=== PATIENT | female | born 2000 | race Caucasian/White ===

== ENCOUNTER 2020-08-21 16:00 | Emergency (ER) | payer OTHER, SELFPAY ==
[2020-08-21 16:12] VITALS: BP 132/68; PULSE 93; RESP 16; TEMP 37.1; O2SAT 100
--- NOTE | 2020-08-21 17:34 | ED.URI ---
HPI - URI/Sore Throat General Chief Complaint: Upper Respiratory Infection Stated Complaint: strep test Time Seen by Provider: 08/21/20 17:27 Source: patient and RN notes reviewed Mode of arrival: ambulatory Limitations: no limitations History of Present Illness HPI Narrative: Patient presents today requesting a strep test. Patient started with a strep throat around [place] and started taking some leftover amoxicillin on 08/16 until 08/19/2024 this sore throat and presumed strep throat. States her sore throat improved, but she still is experiencing scratchiness. Denies cough, runny nose, congestion, fever. She gets tested for COVID-19 twice weekly at her job and has been negative. She has tried no [id number] treatment for her symptoms prior to arrival. Her employer is requiring her to have a negative strep test for her to come back to work. MD elicited complaint: sore throat Related Data Home Medications Medication Instructions Recorded Confirmed No Home Medications 08/21/20 08/21/20 Allergies Allergy/AdvReac Type Severity Reaction Status Date / Time No Known Allergies Allergy Verified 08/21/20 17:20 Review of Systems Review of Systems: Narrative: CONSTITUTIONAL: Denies body aches, fever, chills, or sweats. EYES: Denies visual changes, redness, or discharge. ENT: Denies rhinorrhea, congestion, or otalgia. + Sore throat CARDIOVASCULAR: Denies chest pain, palpitations, or edema. RESPIRATORY: Denies cough or dyspnea. GASTROINTESTINAL: Denies abdominal pain, nausea, vomiting, or diarrhea. GENITOURINARY: Denies dysuria or hematuria. SKIN: Denies rash, itching, or wounds. MUSCULOSKELETAL: Denies back pain, joint pain, or myalgia. NEUROLOGIC: Denies headache, numbness, tingling, or weakness. PSYCH: Denies depression or anxiety. PMFSH Comments At time of signature, I have reviewed and agree with nursing past medical, surgical, social and family history unless otherwise noted. Please see nursing chart for further information. There is no relevant family history pertinent to the presenting complaint Exam Narrative: Exam Narrative: GENERAL: Well-appearing, well-nourished, and in no acute distress. HEAD: Normocephalic, atraumatic. EYES: EOMI. No redness or drainage. Conjunctivae normal. ENT: Mucous membranes pink and moist. Nares clear. No rhinorrhea. TMs normal bilaterally. Throat mildly erythematous without edema or exudate. Small tonsil stone on the left tonsil. Uvula midline. NECK: Normal AROM. Supple. Left posterior chain lymphadenopathy. CHEST: No respiratory distress. Clear to auscultation. HEART: Regular rate and rhythm. No murmur appreciated. Normal peripheral pulses. EXTREMITIES: Normal range of motion. No edema. SKIN: Warm, dry, no rash. Capillary refill normal. Normal skin turgor. NEURO: No focal deficits. Alert and oriented x3. Gait steady. PSYCH: Normal affect. No signs of depression or anxiety. Course Vital Signs Vital signs: Vital Signs Temperature 98.8 F 08/21/20 16:12 Pulse Rate 93 08/21/20 16:12 Respiratory Rate 16 08/21/20 16:12 Blood Pressure 132/68 08/21/20 16:12 Pulse Oximetry 100 08/21/20 16:12 Temperature 98.8 F 08/21/20 16:12 Pulse Rate 93 08/21/20 16:12 Respiratory Rate 16 08/21/20 16:12 Blood Pressure 132/68 08/21/20 16:12 Pulse Oximetry 100 08/21/20 16:12 Reviewed. Pt has been instructed to follow up with her PCP regarding her elevated blood pressure today. MDM - URI/Sore Throat Differential Diagnosis Differential diagnosis: Likely upper respiratory infection, viral infection, pharyngitis and other (Strep throat) Lab Data Attestation: I reviewed the patient's lab results. Labs: Strep Screen Presumptive Negative *(Reference Range: Negative)* Critical Care Time Critical Care Time Critical Care Time: No Discharge Plan Discharge Clinical Impression: Pharyngitis
== END 2020-08-21 17:40 | disposition home or self-care (01) ==
PROVIDERS: Emergency Provider Nurse Practitioner
DX: J02.9 Acute pharyngitis, unspecified (principal)
CPT/HCPCS: 87081; 87880; 99213; G0463

== ENCOUNTER 2021-01-24 13:56 | Emergency (ER) | payer OTHER, SELFPAY ==
[2021-01-24 14:00] VITALS: BP 114/69; PULSE 80; RESP 22; TEMP 37.1; O2SAT 99
--- NOTE | 2021-01-24 14:50 | ED.URI ---
HPI - URI/Sore Throat General Chief Complaint: Upper Respiratory Infection Stated Complaint: Chest pain/nausea/cough/headache Time Seen by Provider: 01/24/21 14:38 Source: patient and RN notes reviewed Mode of arrival: ambulatory Limitations: no limitations History of Present Illness HPI Narrative: Patient presents today complaining of a 2-day history of productive cough, wheezing, pain with deep breaths, sneezing, sore throat, and headache. Denies congestion, rhinorrhea, fever, or shortness of breath. Patient does report asthma, but does not have an inhaler currently. She has been taking ibuprofen, but no other medications for symptoms. MD elicited complaint: cough and sore throat Related Data Allergies Allergy/AdvReac Type Severity Reaction Status Date / Time No Known Allergies Allergy Verified 08/21/20 17:20 Review of Systems Review of Systems: Narrative: CONSTITUTIONAL: Denies body aches, fever, chills, or sweats. EYES: Denies visual changes, redness, or discharge. ENT: Denies rhinorrhea, congestion, or otalgia.+ Sore throat CARDIOVASCULAR: Denies chest pain, palpitations, or edema. RESPIRATORY: Denies dyspnea.+ Cough, wheezing GASTROINTESTINAL: Denies abdominal pain, nausea, vomiting, or diarrhea. GENITOURINARY: Denies dysuria or hematuria. SKIN: Denies rash, itching, or wounds. MUSCULOSKELETAL: Denies back pain, joint pain, or myalgia. NEUROLOGIC: Denies numbness, tingling, or weakness.+ Headache PSYCH: Denies depression or anxiety. [facility] Past Medical History Medical History (Updated 01/24/21 @ 15:25 by Elsa Zepeda, [facility], ) Asthma Comments At time of signature, I have reviewed and agree with nursing past medical, surgical, social and family history unless otherwise noted. Please see nursing chart for further information. There is no relevant family history pertinent to the presenting complaint Exam Narrative: Exam Narrative: GENERAL: Well-appearing, well-nourished, and in no acute distress. HEAD: Normocephalic, atraumatic. EYES: EOMI. No redness or drainage. Conjunctivae normal. ENT: Mucous membranes pink and moist. Nares clear. No rhinorrhea. TMs normal bilaterally. Throat normal. Uvula midline. NECK: Normal AROM. Supple. No lymphadenopathy. CHEST: No respiratory distress. Clear to auscultation. Frequent tight cough. HEART: Regular rate and rhythm. No murmur appreciated. Normal peripheral pulses. EXTREMITIES: Normal range of motion. No edema. SKIN: Warm, dry, no rash. Capillary refill normal. Normal skin turgor. NEURO: No focal deficits. Alert and oriented x3. Gait steady. PSYCH: Normal affect. No signs of depression or anxiety. Course Vital Signs Vital signs: Vital Signs Temperature 98.7 F 01/24/21 14:00 Pulse Rate 80 01/24/21 14:00 Respiratory Rate 22 H 01/24/21 14:00 Blood Pressure 114/69 01/24/21 14:00 Pulse Oximetry 99 01/24/21 14:00 Temperature 98.7 F 01/24/21 14:00 Pulse Rate 80 01/24/21 14:00 Respiratory Rate 22 H 01/24/21 14:00 Blood Pressure 114/69 01/24/21 14:00 Pulse Oximetry 99 01/24/21 14:00 Reviewed MDM - URI/Sore Throat Differential Diagnosis Differential diagnosis: Likely upper respiratory infection, sinusitis, viral infection, bronchitis, pharyngitis and other (Seasonal allergies, rhinitis) Critical Care Time Critical Care Time Critical Care Time: No Discharge Plan Discharge Clinical Impression: Bronchitis, Seasonal allergies Patient Disposition: Home, Self-Care Condition: Stable Instructions: Acute Bronchitis (ED), Allergies (ED) Additional Instructions: Your symptoms are likely due to seasonal allergies. Please start Mucinex and a daily antihistamine such as Zyrtec, Claritin, or Ely. Please take the prednisone and use the albuterol inhaler as directed. Follow-up with your PCP in 1 week if symptoms are not improving, or sooner if symptoms worsen. Patient Language: [place] Prescriptions: New
== END 2021-01-24 14:59 | disposition home or self-care (01) ==
PROVIDERS: Emergency Provider Nurse Practitioner
DX: J40 Bronchitis, not specified as acute or chronic (principal); J30.9 Allergic rhinitis, unspecified
CPT/HCPCS: 99213; G0463

== ENCOUNTER 2021-04-06 14:39 | Emergency (ER) | payer OTHER, SELFPAY ==
[2021-04-06 15:01] VITALS: BP 132/63; PULSE 82; RESP 20; TEMP 37.1; O2SAT 98
--- NOTE | 2021-04-06 16:10 | ED.GENADULT ---
HPI - General Adult General Chief complaint: Upper Respiratory Infection Stated complaint: Sore Throat Time Seen by Provider: 04/06/21 16:10 Source: patient and RN notes reviewed Mode of arrival: ambulatory Limitations: no limitations History of Present Illness HPI narrative: 21-year-old female presents with complaints of sore throat, body aches, and congestion for 1 day. Ida reports increasing sore throat and congestion throughout the day. No treatment. Ill exposure. No high fevers, drooling, neck or throat swelling. Pain is bilateral. Hurts to swallow. Exacerbation factors consist of eating and drinking. Rhinorrhea and nasal congestion. No voice change. No nausea, vomiting, or abdominal pain. Tolerating liquids well. Denies chills, dyspnea, difficulty swallowing, jaw pain, dental pain, facial pain, foreign body sensation, and rash. LMP 2 weeks ago. Remains active. The patient reports she was diagnosed with COVID-19 in June 2020. The patient reports she is not waiting for the results of a COVID-19 lab test. The patient reports she does not have weakness, fatigue, or myalgia. The patient reports he does not have a new or worsening cough or shortness of breath. The patient reports he does not have any loss of taste or smell and diarrhea. Denies recent traveling. Denies concerns for COVID-19 or exposures. At this time, the patient is not suspected of having COVID-19. Some parts of this dictation were generated by voice recognition software and may contain typographical and/or grammatical inaccuracies. Related Data Allergies Allergy/AdvReac Type Severity Reaction Status Date / Time No Known Allergies Allergy Verified 04/06/21 15:23 Review of Systems Review of Systems: CONSTITUTIONAL: Denies fever, chills, sweats. EYES: Denies visual changes, redness, discharge. ENT: Denies otalgia. Complains of sore throat, rhinorrhea, congestion. CARDIOVASCULAR: Denies chest pain, palpitations, edema. RESPIRATORY: Denies dyspnea, wheezing, cough. GASTROINTESTINAL: Denies abdominal pain, nausea, vomiting, diarrhea. SKIN: Denies rash or itching. MUSCULOSKELETAL: Denies acute back pain, joint pain, or myalgia. Complaints of body aches. NEUROLOGIC: Denies numbness or focal weakness. PSYCHIATRIC: Denies anxiety or depression. All systems reviewed & are unremarkable except as noted in HPI and below. [facility] Past Medical History Medical History Asthma Obese Smoker Surgical History Surgical History (Updated 04/06/21 @ 16:49 by AKILA Bernard) No significant past surgical history Family History Family History (Updated 04/06/21 @ 16:50 by AKILA Bernard) Father Alive and well Mother Alive and well Social History Social History (Updated 04/06/21 @ 16:50 by AKILA Bernard) Years smoked: 10 Smoking status: Current every day smoker Tobacco type: cigarettes Second hand tobacco smoke exposure: Yes Living arrangements: with family Occupation/Education: occupation Gender identity (if verbalized by the patient): Female Sexual Orientation (if Verbalized by the Patient): Straight or Heterosexual Comments At time of signature, agree with the nurse past medical, surgical, social, and family history. There is no relevant family history pertinent to the presenting complaint. Exam Narrative: GENERAL: This is a well-nourished, well-developed patient, in no apparent distress. Speaks in full sentences without deficits and ambulates with steady gait without dyspnea. HEAD: Normocephalic, atraumatic. EYES: PERRL. Sclera clear/white. Vision is grossly intact. EARS: External ears normal, auditory canals clear and without drainage, TMs normal without perforation. Hearing grossly intact. NOSE: External nose normal with no obvious nasal discharge, nares with moderate redness and enlarged turbinates, clear rhinorrhea. THROAT: Mucous membranes moist, posterior pharynx with moderate eryth
== END 2021-04-06 17:04 | disposition home or self-care (01) ==
PROVIDERS: Emergency Provider Nurse Practitioner Family
DX: J02.9 Acute pharyngitis, unspecified (principal); F17.210 Nicotine dependence, cigarettes, uncomplicated; J45.909 Unspecified asthma, uncomplicated; E66.9 Obesity, unspecified; Z68.32 Body mass index [BMI] 32.0-32.9, adult
CPT/HCPCS: 87880; 99213; G0463

== ENCOUNTER 2022-01-30 09:50 | Emergency (ER) | payer OTHER, SELFPAY ==
[2022-01-30 09:55] VITALS: BP 120/77; PULSE 80; RESP 16; TEMP 36.9; O2SAT 99
--- NOTE | 2022-01-30 09:57 | ED.URI ---
HPI - URI/Sore Throat General Chief Complaint: Upper Respiratory Infection Stated Complaint: sore throat Time Seen by Provider: 01/30/22 09:57 Source: patient and RN notes reviewed History of Present Illness HPI Narrative: Patient is a 21-year-old female who presents the urgent care with complaints of a sore throat that started this morning. Patient states that she does have a history of strep just as of 6 months ago. Patient denies any ill exposures. Denies of taken anything [id number] for her symptoms. Denies fever, nausea or vomiting. No other acute complaints. No acute distress noted. Patient aware of the plan of care. Some parts of this dictation were generated by voice recognition software and may contain typographical and/or grammatical inaccuracies. Related Data Home Medications Medication Instructions Recorded Confirmed No Home Medications 01/30/22 01/30/22 Allergies Allergy/AdvReac Type Severity Reaction Status Date / Time No Known Allergies Allergy Verified 01/30/22 10:04 Review of Systems Review of Systems: CONSTITUTIONAL: Denies fever, chills, or sweats. EYES: Denies visual changes, redness, or discharge. ENT: Denies rhinorrhea, congestion, or otalgia. Reports of sore throat CARDIOVASCULAR: Denies chest pain, palpitations, or edema. RESPIRATORY: Denies cough or dyspnea. GASTROINTESTINAL: Denies abdominal pain, nausea, vomiting, or diarrhea. GENITOURINARY: Denies dysuria or hematuria. SKIN: Denies rash or itching. MUSCULOSKELETAL: Denies back pain, joint pain, or myalgia. NEUROLOGIC: Denies headache, numbness, or weakness. All other systems reviewed are negative, except as documented in HPI. [facility] Past Medical History Medical History Asthma Obese Smoker Surgical History Surgical History (Updated 04/06/21 @ 16:49 by AKILA Bernard) No significant past surgical history Family History Family History (Updated 04/06/21 @ 16:50 by AKILA Bernard) Father Alive and well Mother Alive and well Social History Social History (Updated 04/06/21 @ 16:50 by AKILA Bernard) Years smoked: 10 Smoking status: Current every day smoker Tobacco type: cigarettes Second hand tobacco smoke exposure: Yes Gender identity (if verbalized by the patient): Female Sexual Orientation (if Verbalized by the Patient): Straight or Heterosexual Comments At the time of my signature, I reviewed and agree with the nursing past medical, surgical, social, and family history. There is no relevant family history pertinent to the patient complaint. Exam Narrative: GENERAL: This is a well-nourished, well-developed patient, in no apparent distress. HEAD: normocephalic, atraumatic. EYES: PERRL. Sclera clear/white. Vision is grossly intact. EARS: External ears normal, auditory canals clear and without drainage, TMs normal without perforation. Hearing grossly intact. NOSE: External nose normal with no obvious nasal discharge, nares without redness, no rhinorrhea. THROAT: Mucous membranes moist, mild bilateral tonsillar erythema without exudate or ulceration. Moderate postnasal drainage. NECK: Neck supple CARDIOVASCULAR: Regular rate and rhythm without murmurs, gallops, or rubs. RESPIRATORY: Clear to auscultation. Breath sounds equal bilaterally. No wheezes, rales, or rhonchi. SKIN: warm, intact with no suspicious lesions or rash, good texture and turgor. NEURO: awake, alert, and oriented to person, place and time. There were no obvious focal neurologic abnormalities. EXTREMITIES: No clubbing, cyanosis, or edema. Course Course Level of Care: Express Care Visit Vital Signs Vital signs: Vital Signs Temperature 98.5 F 01/30/22 09:55 Pulse Rate 80 01/30/22 09:55 Respiratory Rate 16 01/30/22 09:55 Blood Pressure 120/77 01/30/22 09:55 Pulse Oximetry 99 01/30/22 09:55 Oxygen Delivery Room Air 01/30/22 09:55 Temperature 98.5 F 01/30/22 09:55 P
== END 2022-01-30 10:24 | disposition home or self-care (01) ==
PROVIDERS: Emergency Provider Nurse Practitioner Family
DX: J02.9 Acute pharyngitis, unspecified (principal); F17.210 Nicotine dependence, cigarettes, uncomplicated; J45.909 Unspecified asthma, uncomplicated; E66.9 Obesity, unspecified; Z68.35 Body mass index [BMI] 35.0-35.9, adult
CPT/HCPCS: 87081; 87880; 99213; G0463

== ENCOUNTER 2024-02-15 16:03 | Emergency (ER) | payer OTHER, SELFPAY ==
[2024-02-15 16:05] VITALS: BP 143/77; PULSE 97; RESP 14; TEMP 36.7; O2SAT 99
--- NOTE | 2024-02-15 16:32 | ED.URI ---
HPI - URI/Sore Throat General Chief Complaint: Upper Respiratory Infection Stated Complaint: STREP THROAT Time Seen by Provider: 02/15/24 16:25 Source: patient Mode of arrival: ambulatory Limitations: no limitations History of Present Illness HPI Narrative: This is a 24-year-old female that presents to the emergency department for sore throat. Ongoing since yesterday. Reports she is diagnosed with strep at urgent care and started on oral antibiotics. Reports her swelling and pain has worsened which prompted her to be seen. Denies fevers. Related Data Allergies Allergy/AdvReac Type Severity Reaction Status Date / Time No Known Allergies Allergy Verified 01/30/22 10:04 Review of Systems Review of Systems: CONSTITUTIONAL: Denies fever ENT: Reports sore throat All systems reviewed & are unremarkable except as noted in HPI and below PMFSH Past Medical History Medical History Asthma Obese Smoker Surgical History Surgical History (Updated 04/06/21 @ 16:49 by AKILA Bernard) No significant past surgical history Family History Family History (Updated 04/06/21 @ 16:50 by AKILA Bernard) Father Alive and well Mother Alive and well Social History Social History (Updated 04/06/21 @ 16:50 by AKILA Bernard) Years smoked: 10 Smoking status: Current every day smoker Tobacco type: cigarettes Second hand tobacco smoke exposure: Yes Living arrangements: with family Occupation/Education: occupation Gender identity (if verbalized by the patient): Female Sexual Orientation (if Verbalized by the Patient): Straight or Heterosexual Exam Narrative: GENERAL: Well-appearing, well-nourished, and in no acute distress. HEAD: Normocephalic, atraumatic. EYES: EOMI. ENT: Nares clear, no rhinorrhea or epistaxis. Mucous membranes moist. Oropharynx with symmetric tonsillar hypertrophy and exudates. Uvula is midline. No trismus. Bilateral TMs pearly gonzalez non-bulging NECK: Supple. No adenopathy or masses. CHEST: Clear to auscultation. No respiratory distress. No wheezes rales or rhonchi HEART: Regular rate and rhythm. No murmur heard. Normal peripheral pulses. EXTREMITIES: Normal range of motion. No edema. SKIN: Warm, dry, no rash. NEURO: No focal deficits. Alert and oriented x3. PSYCH: Normal mood and affect Course Vital Signs Vital signs: Vital Signs Temperature 98.1 F 02/15/24 16:05 Pulse Rate 97 02/15/24 16:05 Respiratory Rate 14 02/15/24 16:05 Blood Pressure 143/77 H 02/15/24 16:05 Pulse Oximetry 99 02/15/24 16:05 Oxygen Delivery Room Air 02/15/24 16:05 Temperature 98.1 F 02/15/24 16:05 Pulse Rate 97 02/15/24 16:05 Respiratory Rate 14 02/15/24 16:05 Blood Pressure 143/77 H 02/15/24 16:05 Pulse Oximetry 99 02/15/24 16:05 Oxygen Delivery Room Air 02/15/24 16:05 MDM - URI/Sore Throat MDM Narrative Medical decision making narrative: Patient presents to the emergency department for sore throat. She is afebrile and nontoxic appearing. Tolerating secretions, airway patent. 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 Given a dose of IV antibiotics and steroids in the ED. Will be continued on oral Augmentin. Will be given follow-up with ENT. She was given warnings to return to the ER Differential Diagnosis Differential diagnosis: Likely pharyngitis and other (tonsillitis, PCAT INSTRUCTOR) Critical Care Time Critical Care Time Critical Care Time: No Discharge Plan Discharge Clinical Impression: Acute tonsillitis Qualifiers: Pharyngitis/tonsillitis etiology: unspecified etiology Qualified Code(s): J03.90 - Acute tonsillitis, unspecified Patient Disposition: Home, Self-Care Condition: Stable Instructions: Antibiotic Form, Tonsillitis (ED) Additional Instructions: Return to the emergency department for worsening symptoms, or any other concerns Remain well-hydrated, get plenty of rest. Take Tylenol or Motrin [id number]
[2024-02-15] MEDS: dexAMETHasone SOD PHOS INJ 10 MG/ML 1 ML VIAL IV PUSH (16:48)
[2024-02-15] MEDS: KETOROLAC 15 MG/ML VIAL (*BKC) IV PUSH (16:48)
[2024-02-15] MEDS: SODIUM CHLORIDE 0.9% IV 1,000 ML 999 ML IV CONT (16:48)
[2024-02-15] MEDS: AMPICILLIN SULB 3 GM/NS 100 ML 3 GM/100 ML VIAL IVPB (16:50)
== END 2024-02-15 18:35 | disposition home or self-care (01) ==
PROVIDERS: Emergency Provider Physician Assistant
DX: J03.90 Acute tonsillitis, unspecified (principal); J45.909 Unspecified asthma, uncomplicated; E66.9 Obesity, unspecified; Z68.34 Body mass index [BMI] 34.0-34.9, adult; F17.210 Nicotine dependence, cigarettes, uncomplicated
CPT/HCPCS: 96361; 96365; 96375; 99284; J0295; J1100; J1885; J7030

== ENCOUNTER 2024-11-08 10:12 | Emergency (ER) | payer OTHER, SELFPAY ==
--- NOTE | ~2024-11-08 | CT_ITS ---
CT lumbar spine wo con Ordering provider: Jaskaran Gómez MD History: 24 years Female with . LEFT LOWER BACK PAIN, SCIATICA . Comparison: None. Technique: CT lumbar spine without contrast. Automated exposure control and iterative reconstruction technique were employed. The dose-length product was 1151.80 mGy-cm. FINDINGS: VERTEBRAE: Normal height and alignment. No subluxation or visible acute fracture. DISC SPACES: Well maintained. T12-L1: No stenosis. L1-L2: No stenosis. L2-L3: No stenosis. L3-L4: No stenosis. L4-L5: No stenosis. Mild diffuse disc bulge. L5-S1: No stenosis. Central disc protrusion with no significant stenosis of the foramina. PARASPINOUS SOFT TISSUES:Normal. Vacuum phenomena seen in the sacroiliac joints which may indicate sacroiliitis. Sclerotic area seen i n the right sacrum which may be bone island. Follow-up advised. IMPRESSION: No acute osseous abnormality. Disc protrusion at the level of L5-S1. Small sclerotic area in the right sacrum. Follow-up advised. Possible bilateral sacroiliitis. Reviewed, dictated and finalized at location A.
[2024-11-08 10:13] VITALS: BP 145/69; PULSE 70; RESP 16; TEMP 37.1; O2SAT 100
--- OUTSIDE RECORDS SUMMARY | 2024-11-08 10:55 | XMS_ITS | Referral Summary ---
Author Organization [facility] Virtual Care Address [address] [place] [phone] Phone Care Team Providers Care Inspector Precision Name Role Phone Unknown, Notinfile Primary Care Provider Unavail able No, Physician Unavailable Allergies No known active allergies Medications ibuprofen (ADVIL,MOTRIN) 600 mg tabletIndicatio ns:Cramps Take 1 tablet (600 mg total) by mouth every 6 (six) hours as needed for pain 30 tablet 1 0 Active albuterol HFA (PROVENTIL HFA,VENTOLIN HFA,PROAIR HFA) 90 mcg/actuation inhaler Inhale 2 puffs every 4 (four) hours as needed for wheezing or shortness of breath 18 g 1 0 Active HYDROcodone-shane taminophen (NORCO) 5-325 mg per tabletIndicatio ns:Pain Take 1 tablet by mouth every 6 (six) hours as needed for pain 20 tablet 1 Active Additional Information Patient not taking.Reported on 11/13/2020 HYDROcodone-shane taminophen ([place]) 5-325 mg per tabletIndicatio ns:Pain,Do not take on empty stomach Take 1 tablet by mouth every 6 (six) hours as needed for pain 20 tablet 1 Active Additional Information Patient not taking.Reported on 11/13/2020 traMADoL (ULTRAM) 50 mg tablet Take 1 tablet (50 mg total) by mouth every 8 (eight) hours as needed for pain 20 tablet 1 Active Additional Information Patient not taking.Reported on 11/13/2020 Active Problems Problem Noted Date Diagnosed Date Sprain of anterior talofibular ligament of right ankle 12/23/2020 Assessment & Plan (12/23/2020 3:25 PM CDT): Patient has a sprain of the lateral ligamentous complex of the ankle and flexor hallucis longus tendon. At this stage she most likely should be weaning out of her cast boot. A lace-up ankle support was issued for support and counter measure for swelling. Will enroll in physical therapy to work on a conditioning program. She is return the office in six weeks if she is having persistent symptoms. Tear of tibialis anterior tendon 09/29/2020 Assessment & Plan (09/29/2020 4:06 PM CASHIER MANAGER): A concerned the patient may have some localized tearing of the tibialis anterior and peroneal tendons. Would recommend an MRI of the ankle to help assess the integrity of the tendons. This may also help rule out any occult fractures not seen on plain films. The patient should continue with her cast boot crutches and elevation of the leg. She most likely is being too active but as the mother for small children she can't afford being on the leg Traumatic incomplete tear of right rotator cuff 09/15/2020 Assessment & Plan (09/15/2020 1:30 PM CASHIER MANAGER): The patient has a likely partial tear of her right rotator cuff. Physical therapy was prescribed disease usually respond to conservative measures. She should avoid heavy lifting in the interim period Traumatic incomplete tear of left rotator cuff 0 09/15/2020 Assessment & Plan (09/15/2020 1:29 PM CASHIER MANAGER): Patient has a likely partial-thickness tear of her left rotator cuff. Physical therapy was prescribed. She does not appear to be grossly unstable. Sprain of calcaneofibular ligament of right ankl e 09/15/2020 Assessment & Plan (09/29/2020 4:04 PM CASHIER MANAGER): Patient should continue partial weight-bearing with the leg. Elevation is likely be helpful for her swelling. She should continue with the cast boot for protection pending the results of the MRI. Assessment & Plan (09/15/2020 1:58 PM CASHIER MANAGER): Patient has a sprain of the medial and lateral ligamentous complexes of the ankle. She was placed in a prefabricated cast boot. I do not see any evidence of a fracture her foot or ankle. She is to continue with intermittent elevation and ice packs. Would encourage stretching exercises. She can weightbear as comfort allows and would have her return to the office in two weeks for likely conversion to a lace-up ankle support Contusion of right knee 09/15/2020 Assessment & Plan (09/29/2020 4:03 PM CASHIER MANAGER): It is possible the patient has a partial peroneal nerve injury associated with her proximal hematoma but I think this is less likely. She should continue with elevation. There is no evidence of compartment syndrome Assessment & Plan (09/15/2020 1:58 PM CASHIER MANAGER): Patient sustained a contusion of the right knee with hematoma over the anterior aspect the knee. Would expect this to absorbing gradually feel better. Social History Tobacco Use Types Packs/Day Years Used Date Smoking Tobacco: Every Day Cigarettes Smokeless Tobacco: Never Alcohol Use Standard Drinks/Week Comments Not Currently 0 (1 standard drink = 0.6 oz pur e alcohol) Comments No Sex and Gender Information Value Date Recorded Sex Assigned at Not on file Legal Sex Female 3:40 AM CASHIER MANAGER Gender Identity Not on file Sexual Orientation Not on file Last Filed Vital Signs Vital Sign Reading Time Taken Comments Blood Pressure 114/59 03/12/2021 3:15 AM CDT Pulse 58 03/12/2021 3:15 AM CDT Temperature 36.1 C (97 F) 03/12/2021 3:15 AM CDT Respiratory Rate 19 03/12/2021 3:15 AM CDT Oxygen Saturation 95% 03/12/2021 3:15 AM CDT Inhaled Oxygen Concentration - - Weight 100.2 kg (221 lb) 12/23/2020 3:05 PM CDT Height 154.9 cm (5' 1 ) 12/23/2020 3:05 PM CDT Body Mass Index 41.76 12/23/2020 3:05 PM CDT Plan of Treatment Not on file Insurance [facility] IDPA [facility] Advance Directives For more information, please contact: [phone] * Full Code (Latest Code Status on File) Date Activated Date Inactivated Comments 09/11/2019 12:40 PM 09/12/2019 6:53 PM * Full Code Date Activated Date Inactivated Comments 09/11/2019 3:09 AM 09/11/2019 12:40 PM Full CPR in case of cardiopulmonary arrest Care Teams Inspector Precision Relationship Specialty Start Date End Date Unknown, Notinfile PCP - General 10/26/24 No, Physician 10/26/24
--- OUTSIDE RECORDS SUMMARY | 2024-11-08 10:55 | XMS_ITS | Clinical Summary ---
Author Organization [facility] Virtual Care Address [address] [place] [phone] Phone Care Team Providers Care Director Drug Safety Name Role Phone Unknown, Notinfile Primary Care [...] Patient not taking.Reported on 11/13/2020 HYDROcodone-shane taminophen ([place]) 5-325 mg per tabletIndicatio ns:Pain,Do not take [...] 09/29/2020 Assessment & Plan (09/29/2020 4:06 PM TANGLED YARN SPOOL STRAIGHTENER): A concerned the patient may have some [...] 09/15/2020 Assessment & Plan (09/15/2020 1:30 PM TANGLED YARN SPOOL STRAIGHTENER): The patient has a likely partial tear of her right rotator cuff. Physical therapy was prescribed disease usually respond to conservative measures. She should avoid heavy lifting in the interim period Traumatic incomplete tear of left rotator cuff 0 09/15/2020 Assessment & Plan (09/15/2020 1:29 PM TANGLED YARN SPOOL STRAIGHTENER): Patient has a likely partial-thickness tear of her left rotator cuff. Physical therapy was prescribed. She does not appear to be grossly unstable. Sprain of calcaneofibular ligament of right ankl e 09/15/2020 Assessment & Plan (09/29/2020 4:04 PM TANGLED YARN SPOOL STRAIGHTENER): Patient should continue partial weight-bearing with the leg. Elevation is likely be helpful for her swelling. She should continue with the cast boot for protection pending the results of the MRI. Assessment & Plan (09/15/2020 1:58 PM TANGLED YARN SPOOL STRAIGHTENER): Patient has a sprain of the medial [...] 09/15/2020 Assessment & Plan (09/29/2020 4:03 PM TANGLED YARN SPOOL STRAIGHTENER): It is possible the patient has a partial peroneal nerve injury associated with her proximal hematoma but I think this is less likely. She should continue with elevation. There is no evidence of compartment syndrome Assessment & Plan (09/15/2020 1:58 PM TANGLED YARN SPOOL STRAIGHTENER): Patient sustained a contusion of the right knee with hematoma over the anterior aspect the knee. Would expect this to absorbing gradually feel better. Medical History Medical History Date Comments No known health problems Family History Medical History Relation Name Comments Hypertension Father Hypertension Mother Relation Name Status Comments Father Mother Social History Tobacco Use Types Packs/Day Years Used Date Smoking Tobacco: Every Day Cigarettes Smokeless Tobacco: Never Alcohol Use Standard Drinks/Week Comments Not Currently 0 (1 standard drink = 0.6 oz pur e alcohol) Comments No Sex and Gender Information Value Date Recorded Sex Assigned at Not on file Legal Sex Female 3:40 AM TANGLED YARN SPOOL STRAIGHTENER Gender Identity Not on file Sexual Orientation Not on file Obstetrics History Para Term AB IAB SAB Ectopic Multiple Livin g Live Births 3 3 1 0 1 1 Date Outcome GA Total Labor Labor/2nd/3rd Weight Sex Type Anes PTL Lisa A1 A5 Name Clin 2014 Para 39w 0d 3.005 kg (6 lb 10 oz) F Vag-S pont 2017 Para 40w 0d 3.204 kg (7 lb 1 oz) M Vag-S pont 2019 Term 38w 5d 7h 26m 7h 08m/0h 13m/0h 05m 2.849 kg (6 lb 4.5 oz) M Vag-S pont Epidur al N Livin g 9 9 JAKE DEOLNG Geoffr ey Lowell, MD Complications:None Delivery Location:This Facil [facility]y ([facility]) Last Filed Vital Signs Vital Sign Reading [...] 12/23/2020 3:05 PM CDT Plan of Treatment Health Maintenance Due Date Last Done Comments Cervical Cancer Screening 2000 Chlamydia and Gonorrhea (GC/ CT) Screening 2000 Depression Screening 2000 Hepatitis C Screening 2000 Pneumococcal vaccine <65 (1 of 1 - PPSV23) 02/07/2006 2000, 2000 HPV Vaccines (2 - 2-dose series) 10/01/2012 03/31/20 12 Varicella Vaccines (1 of 2 - 13+ 2-dose series) 02/07/2013 Regular Well Visit/Exam 18-64 02/07/2018 Influenza Vaccine (#1) 2024 DTaP/Tdap/Td Vaccine (8 - Td or Tdap) 02/22/2025 02/22/2015, 03/31/2012, 04/09/2005, Additional history exists Hepatitis B Screening Completed 2000 , 2000, [address] [place] [address] [place] [address] [facility] Advance Directives For more information, please contact: [phone] * Full Code (Latest Code Status on File) Date Activated Date Inactivated Comments 09/11/2019 12:40 PM 09/12/2019 6:53 PM * Full Code Date Activated Date Inactivated Comments 09/11/2019 3:09 AM 09/11/2019 12:40 PM Full CPR in case of cardiopulmonary arrest Care Teams Director Drug Safety Relationship Specialty Start Date End Date Unknown, Notinfile PCP - General 10/26/24 No, Physician 10/26/24
--- NOTE | 2024-11-08 11:34 | ED_ITS ---
HPI - Back Pain/Injury General Chief Complaint: Back Pain/Injury Stated Complaint: BACK [id number] Time Seen by Provider: 11/08/24 11:24 Source: patient Mode of arrival: ambulatory Limitations: no limitations History of Present Illness HPI Narrative: 24 YEARS OLD WHITE FEMALE DROVE HERSELF TO THE EMERGENCY ROOM WITH HER 2 LITTLE KIDS COMPLAINING OF LEFT LOWER BACK PAIN RADIATING TO LEFT LOWER EXTREMITY DOWN TO THE TOES, SHARP, NUMBNESS, WORSE WITH ANY MOVEMENT MAINLY WHEN SHE LAY DOWN STILL AND FLAT, BETTER IF SHE SAT UP WITH HEATING PAD ON THE LOWER BACK. PATIENT DENIES BOWEL DYSFUNCTION, BLADDER DYSFUNCTION, ALTERED SENSATION, FOCAL WEAKNESS, OR SADDLE NUMBNESS, PATIENT REPORT HAVING SIMILAR SYMPTOMS WHEN SHE WAS AND WAS WORSE THAN TODAY, AND WAS DIAGNOSED OF SCIATICA. THE PAIN NEVER GONE COMPLETELY. BEEN HAVING INTERMITTENT PAIN SINCE HER LAST WHICH IS 5 YEARS AGO, WHICH GOT WORSE OVER THE LAST 2 WEEKS. SHE DENIES ANY TRAUMA, FEVER, CHILLS, NAUSEA, VOMITING, ABDOMINAL PAIN OR CHEST PAIN. Related Data Allergies Allergy/AdvReac Type Severity Reaction Status Date / Time No Known Allergies Allergy Verified 11/08/24 10:13 Review of Systems Review of Systems: All systems reviewed & are unremarkable except as noted in HPI and below PMFSH Past Medical History Medical History Smoker Obese Asthma Surgical History Surgical History No significant past surgical history Family History Family History Father Alive and well Mother Alive and well Social History Social History Years smoked: 10 Smoking status: Current every day smoker Tobacco type: cigarettes Second hand tobacco smoke exposure: Yes Living arrangements: with family Occupation/Education: occupation Gender identity (if verbalized by the patient): Female Sexual Orientation (if Verbalized by the Patient): Straight or Heterosexual Exam Narrative: GENERAL APPEARANCE: WELL-DEVELOPED, WELL-NOURISHED SKIN: NORMAL COLOR HEAD: NORMOCEPHALIC, NONTRAUMATIC EYES: CLEAR CONJUNCTIVA ENT: OROPHARYNX NORMAL, EARS NORMAL, NOSE NORMAL NECK: SUPPLE, NONTENDER CHEST AND RESPIRATORY: AIRWAY PATENT, NO RESPIRATORY DISTRESS, NO ACCESSORY MUSCLE USE HEART: REGULAR RATE/RHYTHM ABDOMEN: SOFT, NONTENDER, NO ORGANOMEGALY, QUIET BOWEL SOUNDS VASCULAR: NORMAL PERIPHERAL PULSES, NORMAL CAPILLARY REFILL. MUSCULOSKELETAL: DIFFUSE TENDERNESS AT THE LEFT LOWER BACK AND MID LUMBAR AREA, NO BRUISES, NO SWELLING, NO RASH NEUROLOGIC: ALERT AND ORIENTED ?3, HOSPITAL CARRIER IS NORMAL TESTED, NO GROSS MOTOR DEFICIT, FLEXION OF THE LEFT LOWER EXTREMITY AND HIP AREA CAUSING PAIN AT THE LOWER BACK, AND BACK OF LEFT THIGH CONSISTENT WITH POSITIVE STRAIGHT LEG RAISE TEST Course Vital Signs Vital signs: Vital Signs Temperature 37.1 C 11/08/24 10:13 Pulse Rate 70 11/08/24 10:13 Respiratory Rate 16 11/08/24 10:13 Blood Pressure 145/69 H 11/08/24 10:13 Pulse Oximetry 100 11/08/24 10:13 Oxygen Delivery Room Air 11/08/24 10:13 Temperature 37.1 C 11/08/24 10:13 Pulse Rate 70 11/08/24 10:13 Respiratory Rate 16 11/08/24 10:13 Blood Pressure 145/69 H 11/08/24 10:13 Pulse Oximetry 100 11/08/24 10:13 Oxygen Delivery Room Air 11/08/24 10:13 MDM - Back Pain/Injury Lab Data Labs: Lab Results 11/08/24 Range/Units 12:56 POC Urine HCG, Qual Negative (Negative) Critical Care Time Critical Care Time Critical Care Time: No Discharge Plan Discharge Clinical Impression: Sciatica of left side Patient Disposition: Home, Self-Care Condition: Stable Instructions: Sciatica (ED), Acute Low Back Pain (ED) Additional Instructions: RETURN IF SYMPTOMS ARE WORSENING , CALL YOUR FAMILY PHYSICIAN FOR APPOINTMENT, TAKE TYLENOL NEEDED FOR ACHES AND PAIN, CONTINUE HOME MEDICATIONS. Patient Language: Serbian Prescriptions: New cyclobenzaprine 10 mg tablet 10 mg PO TID PRN (Reason: muscle spasm) Qty: 20 0RF methylprednisolone [Medrol (Ronald)] 4 mg tablets,dose pack See Rx Instructions PO .COMPLEX Qty: 21 0RF Rx Instructions: orally per package directions No Action amoxicillin-pot clavulanate 875-125 mg tablet 1 tablet PO Q12H 10 Days Qty: 20 0RF Follow-up/Referrals: PHYSICIAN,RN ONCOLOGY RESEARCH [Primary Care Provider] - Maura Tovar MD [Physician] - 11/12/24
[2024-11-08] MEDS: KETOROLAC (*BKC) 60 MG/2 ML VIAL IM (12:02)
--- OUTSIDE RECORDS SUMMARY | 2024-11-08 12:31 | XMS_ITS | Referral Summary ---
Author Organization [facility] Virtual Care Address [address] [place] [phone] Phone Care Team Providers Care Property Disposal Manager Name Role Phone Unknown, Notinfile Primary Care [...] Patient not taking.Reported on 11/13/2020 HYDROcodone-shane taminophen ([place]) 5-325 mg per tabletIndicatio ns:Pain,Do not take [...] Assessment & Plan (09/29/2020 4:06 PM CASHIER OFFICE): A concerned the patient may have some [...] Assessment & Plan (09/15/2020 1:30 PM CASHIER OFFICE): The patient has a likely partial tear of her right rotator cuff. Physical therapy was prescribed disease usually respond to conservative measures. She should avoid heavy lifting in the interim period Traumatic incomplete tear of left rotator cuff 0 09/15/2020 Assessment & Plan (09/15/2020 1:29 PM CASHIER OFFICE): Patient has a likely partial-thickness tear of her left rotator cuff. Physical therapy was prescribed. She does not appear to be grossly unstable. Sprain of calcaneofibular ligament of right ankl e 09/15/2020 Assessment & Plan (09/29/2020 4:04 PM CASHIER OFFICE): Patient should continue partial weight-bearing with the leg. Elevation is likely be helpful for her swelling. She should continue with the cast boot for protection pending the results of the MRI. Assessment & Plan (09/15/2020 1:58 PM CASHIER OFFICE): Patient has a sprain of the medial [...] Assessment & Plan (09/29/2020 4:03 PM CASHIER OFFICE): It is possible the patient has a partial peroneal nerve injury associated with her proximal hematoma but I think this is less likely. She should continue with elevation. There is no evidence of compartment syndrome Assessment & Plan (09/15/2020 1:58 PM CASHIER OFFICE): Patient sustained a contusion of the right [...] file Legal Sex Female 3:40 AM CASHIER OFFICE Gender Identity Not on file Sexual Orientation [...] Plan of Treatment Not on file Insurance [facility] IDPA [facility] Advance Directives For more information, please contact: [phone] * Full Code (Latest Code Status on File) Date Activated Date Inactivated Comments 09/11/2019 12:40 PM 09/12/2019 6:53 PM * Full Code Date Activated Date Inactivated Comments 09/11/2019 3:09 AM 09/11/2019 12:40 PM Full CPR in case of cardiopulmonary arrest Care Teams Property Disposal Manager Relationship Specialty Start Date End Date Unknown, Notinfile PCP - General 10/26/24 No, Physician 10/26/24
--- OUTSIDE RECORDS SUMMARY | 2024-11-08 12:31 | XMS_ITS | Clinical Summary ---
Author Organization [facility] Virtual Care Address [address] [place] [phone] Phone Care Team Providers Care Paper Plate Machine Tender Name Role Phone Unknown, Notinfile Primary Care [...] Patient not taking.Reported on 11/13/2020 HYDROcodone-shane taminophen ([place]) 5-325 mg per tabletIndicatio ns:Pain,Do not take [...] 09/29/2020 Assessment & Plan (09/29/2020 4:06 PM PLASTERER HELPER): A concerned the patient may have some [...] 09/15/2020 Assessment & Plan (09/15/2020 1:30 PM PLASTERER HELPER): The patient has a likely partial tear of her right rotator cuff. Physical therapy was prescribed disease usually respond to conservative measures. She should avoid heavy lifting in the interim period Traumatic incomplete tear of left rotator cuff 0 09/15/2020 Assessment & Plan (09/15/2020 1:29 PM PLASTERER HELPER): Patient has a likely partial-thickness tear of her left rotator cuff. Physical therapy was prescribed. She does not appear to be grossly unstable. Sprain of calcaneofibular ligament of right ankl e 09/15/2020 Assessment & Plan (09/29/2020 4:04 PM PLASTERER HELPER): Patient should continue partial weight-bearing with the leg. Elevation is likely be helpful for her swelling. She should continue with the cast boot for protection pending the results of the MRI. Assessment & Plan (09/15/2020 1:58 PM PLASTERER HELPER): Patient has a sprain of the medial [...] 09/15/2020 Assessment & Plan (09/29/2020 4:03 PM PLASTERER HELPER): It is possible the patient has a partial peroneal nerve injury associated with her proximal hematoma but I think this is less likely. She should continue with elevation. There is no evidence of compartment syndrome Assessment & Plan (09/15/2020 1:58 PM PLASTERER HELPER): Patient sustained a contusion of the right [...] on file Legal Sex Female 3:40 AM PLASTERER HELPER Gender Identity Not on file Sexual Orientation [...] al N Livin g 9 9 JAKE DELONG Geoffr ey Lowell, MD Complications:None Delivery Location:This [...] Screening Completed 2000 , 2000, [address] [place] [address] [facility] Advance Directives For more information, please contact: [phone] * Full Code (Latest Code Status on File) Date Activated Date Inactivated Comments 09/11/2019 12:40 PM 09/12/2019 6:53 PM * Full Code Date Activated Date Inactivated Comments 09/11/2019 3:09 AM 09/11/2019 12:40 PM Full CPR in case of cardiopulmonary arrest Care Teams Paper Plate Machine Tender Relationship Specialty Start Date End Date Unknown, Notinfile PCP - General 10/26/24 No, Physician 10/26/24
[2024-11-08 12:59] LABS: BEDSIDEPREGUCG Negative (Negative)
[2024-11-08 13:57] VITALS: BP 136/84; PULSE 84; RESP 16; O2SAT 98
== END 2024-11-08 13:59 | disposition home or self-care (01) ==
PROVIDERS: Emergency Provider Emergency Medicine
DX: M54.42 Lumbago with sciatica, left side (principal); J45.909 Unspecified asthma, uncomplicated; F17.210 Nicotine dependence, cigarettes, uncomplicated
CPT/HCPCS: 72131; 81025; 96372; 99284; J1885

== ENCOUNTER 2025-03-18 11:37 | Emergency (ER) | payer MEDICAID, SELFPAY ==
[2025-03-18 11:43] VITALS: BP 126/78; PULSE 84; RESP 16; TEMP 36.5; O2SAT 98
--- NOTE | 2025-03-18 12:03 | ED.SKABFB ---
HPI - Skin/Abscess/Foreign Bdy General Chief complaint: Skin/Abscess/Foreign Body Stated complaint: Spider Bite Time Seen by Provider: 03/18/25 12:04 Source: patient Mode of arrival: ambulatory Limitations: no limitations History of Present Illness HPI narrative: 25 yo female presented for c/o skin changes to right breast. Endorses a small round tender bump, purple in color. Says it started as a knot under the skin about 2 months ago, and has slowly changed colors from pink into purple, and has been painful for 2 weeks. Has applied PRID to the site and says it might be getting smaller but unsure of any drainage. Denies streaking, n/v/d/f/c. Scheduled to establish with new pcp in Apr. Related Data Allergies Allergy/AdvReac Type Severity Reaction Status Date / Time No Known Allergies Allergy Verified 03/18/25 11:55 Review of Systems Review of Systems: CONSTITUTIONAL: Denies body aches, fever, chills, or sweats. EYES: Denies visual changes, redness, or discharge. ENT: Denies rhinorrhea, congestion CARDIOVASCULAR: Denies chest pain, palpitations, or edema. RESPIRATORY: Denies cough or dyspnea. GASTROINTESTINAL: Denies abdominal pain, nausea, vomiting, or diarrhea. SKIN: reports skin changes on right breast MUSCULOSKELETAL: Denies back pain, joint pain, or myalgia. NEUROLOGIC: Denies headache, numbness, tingling, or weakness. [facility] Past Medical History Medical History Smoker Obese Asthma Surgical History Surgical History No significant past surgical history Family History Family History Father Alive and well Mother Alive and well Social History Social History Years smoked: 10 Smoking status: Current every day smoker Tobacco type: cigarettes Second hand tobacco smoke exposure: Yes Living arrangements: with family Occupation/Education: occupation Gender identity (if verbalized by the patient): Female Sexual Orientation (if Verbalized by the Patient): Straight or Heterosexual Comments At time of signature, I have reviewed and agree with nursing past medical, surgical, social and family history unless otherwise noted. Please see nursing chart for further information. There is no relevant family history pertinent to the presenting complaint Exam Narrative: GENERAL: Well-appearing HEAD: Normocephalic, atraumatic. EYES: conjunctivae clear, and EOMI. ENT: Mucous membranes moist. Oropharynx without edema, erythema or lesions. NECK: Supple. No lymphadenopathy CHEST: Clear to auscultation. HEART: Regular rate and rhythm. SKIN: Warm, dry. Right lateral breast with 0.5cm round purple tender skin lesion, no fluctuance or active drainage. NEURO: Alert and oriented x3. Course Course Emergency Course: Patient is aware of diagnosis, understands and agrees to treatment plan. Anticipatory guidance given. Patient agrees to follow-up as directed and is aware of reasons to seek care at the emergency department. Portions of this record may have been created with voice recognition software Level of Care: Express Care Visit Vital Signs Vital signs: Vital Signs Temperature 97.7 F 03/18/25 11:43 Pulse Rate 84 03/18/25 11:43 Respiratory Rate 16 03/18/25 11:43 Blood Pressure 126/78 03/18/25 11:43 Pulse Oximetry 98 03/18/25 11:43 Temperature 97.7 F 03/18/25 11:43 Pulse Rate 84 03/18/25 11:43 Respiratory Rate 16 03/18/25 11:43 Blood Pressure 126/78 03/18/25 11:43 Pulse Oximetry 98 03/18/25 11:43 Reviewed MDM - Skin/Abscess/Foreign Bdy MDM Narrative Medical decision making narrative: Discussed physical exam findings. No indication for I&D at this time. Rx abx. Provided with dermatologists. Advised supportive measures and signs/symptoms to go to the ER. Pt is appropriate for outpt treatment and f/u. Differential Diagnosis Differential diagnosis: Likely abscess of skin or subcutaneous tissue, viral exanthem, dermatophytosis, urticaria, herpes zoster, cellulitis, eczema, insect bites, impetigo and contact dermatitis Discharge Plan Discharge Clinical Impression: Abscess of skin or subcutaneous tissue Patient Disposition: Home Condition: Stable Instructions: Antibiotic Form, Abscess (ED) Additional Instructions: Keep the area clean and dry - cleanse with warm water and mild soap and allow to fully dry. Ok to apply PRID or neosporin to the site Keep it open to air (no bandages unless draining) Tyleol as needed for pain Take antibiotic as directed. If no improvement please follow up with enterer. Watch for worsening symptoms including pain, redness, swelling, streaking, pus/drainage, fever. Go to the ER with any of these symptoms or concerns. Follow up with primary care provider in 1 week as needed. Dermatologists: [facility] [address] [phone] [facility] [address] [phone] [facility] [address] [facility] [phone] [facility] [address] [phone] Patient Language: Bots[place] Prescriptions: New amoxicillin-pot clavulanate 875-125 mg tablet 1 tablet PO Q12H 7 Days Qty: 14 0RF Follow-up/Referrals: PHYSICIAN,FORECLOSURE FIELD INSPECTOR [Primary Care Provider] - Time of Disposition: 12:11
== END 2025-03-18 12:14 | disposition home or self-care (01) ==
PROVIDERS: Emergency Provider Nurse Practitioner Family
DX: N61.1 Abscess of the breast and nipple (principal); F17.210 Nicotine dependence, cigarettes, uncomplicated
CPT/HCPCS: 99213; G0463